=== PATIENT | male | born 1970 | race Caucasian/White ===

== ENCOUNTER 2024-02-06 19:18 | Emergency (ER) | payer SELFPAY ==
[~2024-02-06] VITALS: Ht 165.1 cm; Wt 84.0 kg
[2024-02-06 19:25] VITALS: TEMP 98.2; O2SAT 98
[2024-02-06] MEDS: TETANUS, DIPHTHERIA, PERTUSSIS VAC/PF 0.5ML (>10YR OLD) IM ONE (22:41)
[2024-02-06] MEDS ORDERED: NAPR-679 MT (23:20)
[2024-02-06] MEDS ORDERED: LIDO700A15 TP (23:20)
[2024-02-06] MEDS: KETOROLAC 30MG/ML VIAL IM ONE (23:33)
[2024-02-06 23:44] VITALS: BP 132/85; PULSE 60; RESP 16; O2SAT 99
== END 2024-02-06 23:46 | disposition home or self-care (01) ==
LOC: ER 19:18
DX: S50.02XA Contusion of left elbow, initial encounter (principal); S40.022A Contusion of left upper arm, initial encounter; M54.50 Low back pain, unspecified; W11.XXXA Fall on and from ladder, initial encounter; Y93.89 Activity, other specified; Y92.89 Other specified places as the place of occurrence of the external cause; Y99.8 Other external cause status
CPT/HCPCS: 72100; 73060; 73080; 90715; 90471; 96372; 99284; J1885; Z7610 ×3